=== PATIENT | female | born 1975 | race Caucasian/White ===

== ENCOUNTER 2018-09-05 07:28 | Observation (INO) | payer MEDICAID ==
[2018-09-05] MEDS ORDERED: ceFAZolin 2 GM/DEXTROSE 100 ML IV ONE (08:22)
[2018-09-05] MEDS ORDERED: LIDOCAINE 1% 2 ML INJ ID PRN (08:23)
[2018-09-05] MEDS ORDERED: LR 1,000 ML IV ONE (08:23)
[2018-09-05] MEDS ORDERED: BUPIVACAINE 0.5% 30 ML SDV ONE (10:38)
--- NOTE | 2018-09-05 11:42 | PDANEPAE ---
ANE History of Present Illness Melanoma L leg here for excision ANE Past Medical History - Cardiovascular History Hx Hypertension: No Hx Arrhythmias: No Hx Chest Pain: No - Pulmonary History Hx COPD: No Hx Asthma/Reactive Airway Disease: No Hx Recent Upper Respiratory Infection: No Hx Oxygen in Use at Home: No Hx Sleep Apnea: No - Cancer History Hx Cancer: Yes Cancer History Comment: melanoma ANE Review of Systems Review of Systems: - Exercise capacity Exercise capacity: >=4 METS ANE Patient History - Allergies Allergies/Adverse Reactions: No Known Allergies Allergy (Unverified 08/30/18 11:49) - Home Medications Home Medications: NK [No Known Home Meds] 09/05/18 [Last Taken Unknown] - NPO status NPO Status: no food or drink >8 hours NPO Since - Liquids (Date): 09/04/18 NPO Since - Liquids (Time): 20:00 NPO Since - Solids (Date): 09/04/18 NPO Since - Solids (Time): 18:00 - Anes Hx Anes Hx: no prior problems - Smoking Hx Smoking Status: Never smoked - Alcohol Use Alcohol Use: None - Family Anes Hx Family Anes Hx: none ANE Labs/Vital Signs - Vital Signs Blood Pressure: 128/89 Heart Rate: 61 Respiratory Rate: 20 O2 Sat (%): 96 Height: 157.48 cm Weight: 82.1 kg ANE Physical Exam - Airway Neck exam: FROM Mallampati Score: Class 2 Mouth exam: normal dental/mouth exam - Pulmonary Pulmonary: no respiratory distress, clear to auscultation - Cardiovascular Cardiovascular: regular rate and rhythym, no murmur, rub, or gallop - ASA Status ASA Status: II ANE Anesthesia Plan Anesthesia Plan: GA w LMA
[2018-09-05] MEDS ORDERED: MIDAZOLAM 2 MG/2 ML VIAL IVP ONE (11:43)
--- NOTE | 2018-09-05 12:22 | PDHPUP ---
History & Physical Update H&P update statement: This history and physical update is based on an assessment of the patient which was completed after admission or registration (within 24 hours), but prior to the surgery/procedure. H&P update: H&P reviewed & patient examined, no change in patient's condition since H&P completed
[2018-09-05] MEDS ORDERED: LIDOCAINE 2% 100 MG/5 ML SYR ONE (12:38)
[2018-09-05] MEDS ORDERED: fentaNYL 100 MCG/2 ML INJ ONE ×4 (12:38→16:07)
[2018-09-05] MEDS ORDERED: PROPOFOL 200 MG/20 ML VIAL ONE (12:38)
--- NOTE | 2018-09-05 14:04 | POSTOPPROG ---
Post Op Note Date of Operation: 09/05/18 Surgeon: Faby Acuna Anesthesiologist: gayla Anesthesia: GET(General Endotracheal) Pre-op Diagnosis: malignant melanoma lle Post-op Diagnosis: same Indication: 43 yo with melanoma Procedure: wle melanoma 8x4.5 and sln Findings: no unusual Inf/Abcess present in the surg proc area at time of surgery?: No EBL: Minimal Specimen(s): short superior long posterior and lymph nodes
[2018-09-05] MEDS ORDERED: NALOXONE HCL 0.4 MG/ML INJ IVP PRN (14:13)
[2018-09-05] MEDS ORDERED: PROMETHAZINE HCL 25 MG/ML INJ IVP PRN (14:13)
[2018-09-05] MEDS ORDERED: HYDROCODONE/APAP 5/325 TAB PO PRN (14:13)
[2018-09-05] MEDS ORDERED: oxyCODONE IR 5 MG TAB PO PRN (14:13)
[2018-09-05] MEDS ORDERED: ACETAMINOPHEN 500 MG TAB PO PRN (14:13)
[2018-09-05] MEDS ORDERED: ONDANSETRON 4 MG/2 ML VIAL IVP PRN ×2 (14:13→17:21)
--- NOTE | 2018-09-05 14:14 | POSTANESTH ---
Post Anesthetic Evaluation Cardiovascular Status: Normal, Stable, Similar to Pre-Op Cond Respiratory Status: Normal, Stable, Similar to Pre-op Cond. Level of Consciousness/Mental Status: Can Participate in Eval, Alert and Oriented Pain Control: Adequate, Prn Tx Ordered Nausea/Vomiting Control: Adequate, Prn Tx Ordered Complications Possibly Related to Anesthesia: None Noted
[2018-09-05] MEDS: fentaNYL 100 MCG/2 ML INJ IVP PRN ×3 (14:28→16:09)
[2018-09-05] MEDS ORDERED: HYDROmorphONE/DILAUDID 2 MG/ML INJ ONE (14:32)
[2018-09-05] MEDS: HYDROmorphONE/DILAUDID 2 MG/ML INJ IVP PRN ×3 (14:34→15:17)
[2018-09-05] MEDS ORDERED: DIAZEPAM 5 MG/ML 1 ML SYR ONE ×2 (15:02→16:08)
[2018-09-05] MEDS: DIAZEPAM 5 MG/ML 1 ML SYR IVP PRN ×2 (15:03→16:30)
[2018-09-05] MEDS ORDERED: HYDROCODONE/APAP 5/325 TAB ONE (15:21)
[2018-09-05] MEDS ORDERED: OXYCODONE/APAP 5/325 TAB PO PRN (17:20)
[2018-09-05] MEDS ORDERED: ONDANSETRON DISINTEGRATING 4 MG TAB PO PRN (17:21)
[2018-09-05] MEDS ORDERED: DIAZEPAM 2 MG TAB PO PRN (17:21)
[2018-09-05] MEDS: KETOROLAC 15 MG/1 ML SDV IVP SCH ×2 (19:15→23:27)
[2018-09-06] MEDS: KETOROLAC 15 MG/1 ML SDV IVP SCH (05:12)
[2018-09-06 07:51] VITALS: BP 108/63
[2018-09-06] MEDS ORDERED: PNEUMOCOCCAL 0.5ML VACCINE VIAL (PNEUMOVAX 23) IM ONE (09:22)
--- NOTE | 2018-09-06 09:50 | SOAPPROG ---
SOAP Progress Note Assessment/Plan: Assessment/Plan: 43yo F POD#1 s/p WLE of LLE melanoma with SLN bx. Wound closure with Dermaclose device Path pending Pain improved this am, controlled with PO pain meds Ambulating with walker Tolerating regular diet Change outer dressing twice weekly - ABD and tape [place] cast-protector when showering Dispo: DC home today with close follow-up outpatient for wound care. Seen with Dr. Acuna. Distributor Sales Manager present S: pain well controlled this am O: sitting upright in chair, NAD No increased WOB No peripheral edema Dressing intact. Dermaclose intact. Sutures intact. No surrounding erythema. Objective: Vital Signs Temp Pulse Resp BP Pulse Ox 36.6 C 60 16 108/63 97 09/06/18 07:50 09/06/18 07:50 09/06/18 07:50 09/06/18 07:50 09/06/18 07:50 09/05/18 09/06/18 09/07/18 05:59 05:59 05:59 Intake Total 2150 Output Total 610 Balance 1540 ICD10 Worksheet Patient Problems: Problems Problem Status Onset Melanoma Acute - ICD10 Problem Qualifiers (1) Melanoma
--- NOTE | 2018-09-06 10:06 | ASDISCHSUM ---
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 Comorbidities - select Answers: Other Notes: Melanoma; all that apply # of Emergency department Answers: 0 visits in the last 6 months Score: 1 Date Signed: 09/06/2018 10:05 AM Electronically Signed By:Bri Schumacher Intervention Information
--- NOTE | 2018-09-22 15:15 | GOP ---
DATE OF OPERATION: 09/05/2018 SURGEON: Faby Acuna MD ANESTHESIA: General. ANESTHESIOLOGIST: Reuben Cross MD. PREOPERATIVE DIAGNOSIS: Malignant melanoma, left lower extremity. POSTOPERATIVE DIAGNOSIS: Malignant melanoma, left lower extremity. PROCEDURE PERFORMED: Wide local excision, malignant melanoma, sentinel lymph node biopsy, and insertion of tissue detailer school photographs into left lower leg subcutaneous tissue and fascia. FINDINGS: Wide local excision 8 x 4.5 cm. Dermaclose Product code 159667-Q Lot [id number] exp 03/2021 SPECIMENS: Wide local excision, short superior, long lateral, and lymph nodes. ESTIMATED BLOOD LOSS: Minimal. INDICATIONS: The patient is a 43-year-old with malignant melanoma to her left lower extremity, Breslow depth looked greater than 0.7 and sentinel lymph node biopsy was indicated. We had discussed preoperatively that she would not have enough tissue to close the skin and a DermaClose device was applied to facilitate this. DESCRIPTION OF PROCEDURE: Patient was brought into the operating room, placed supine on the table, and general anesthesia was administered. Her left lower leg and groin were prepped and draped in the usual sterile fashion. I marked 2 cm around the area of the malignant melanoma and then lengthened the incision to create an ellipse. I dissected down to the level of the fascia. I marked short superior, long lateral. This was submitted to Pathology for permanent. Hemostasis achieved in the area. The wound measures approximately 8 x 4.5 cm. I then created subcutaneous flaps about 2 cm in length on the left lower extremity to the level of the fascia. I then applied the DermaClose device, first protecting the skin with Ioban. I placed Adaptic Touch at the base of the wound. I then placed the DermaClose device and tightened it. ABD and Brandon were applied. I made an incision in her groin and dissected down through the subcutaneous tissues. I identified the sentinel lymph nodes very medial. The uptake was quiet and there was no uptake once I removed the sentinel lymph node. Hemostasis achieved. Wound closed with 3-0 Vicryl, followed by Mastisol, Steri- Strips, and a sterile dressing were applied. She was awakened in the operating room, extubated, transferred to PACU in stable condition. /[id number]/MODL MTDD
== END 2018-09-06 11:23 | disposition home or self-care (01) ==
LOC: FSGY 07:28 → F3E 17:20 → F1N 18:52
PROVIDERS: ADMIT Surgery; ATTEND Surgery
DX: C43.72 Malignant melanoma of left lower limb, including hip (principal); Z23 Encounter for immunization
CPT/HCPCS: 11606; 38500; 78195; 90471; 97116; 97161; 97165; A9520; G0008; G0009; J0690; J1170; J1885; J2001; J2250; J2704; J3010; J3360

== ENCOUNTER 2018-09-23 07:04 | Observation (INO) | payer MEDICAID ==
[2018-09-23] MEDS ORDERED: BUPIVACAINE 0.5% 30 ML SDV ONE ×2 (07:14→08:49)
[2018-09-23] MEDS ORDERED: ceFAZolin 2 GM/DEXTROSE 100 ML IV ONE (07:19)
[2018-09-23] MEDS ORDERED: LR 1,000 ML IV ONE (08:15)
--- NOTE | 2018-09-23 08:30 | PDANEPAE ---
ANE History of Present Illness Left lower extrem wound, here for I&D, wound closure ANE Past Medical History - Cardiovascular History Hx Hypertension: No Hx Arrhythmias: No Hx Chest Pain: No Hx Coronary Artery / Peripheral Vascular Disease: No Hx CHF / Valvular Disease: No Hx Palpitations: No - Pulmonary History Hx COPD: No Hx Asthma/Reactive Airway Disease: No Hx Recent Upper Respiratory Infection: No Hx Oxygen in Use at Home: No Hx Sleep Apnea: No Sleep Apnea Screening Result - Last Documented: Negative - Neurologic History Hx Cerebrovascular Accident: No Hx Seizures: No Hx Dementia: No - Endocrine History Hx Diabetes: No - Renal History Hx Renal Disorders: Yes Renal History Comment: 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 left nephrectomy ANE Review of Systems Review of Systems: - Exercise capacity METS (RN): 4 METS ANE Patient History - Allergies Allergies/Adverse Reactions: No Known Allergies Allergy (Verified 09/20/18 16:06) - Home Medications Home Medications: NK [No Known Home Meds] 09/20/18 [Last Taken Unknown] - NPO status NPO Since - Liquids (Date): 09/22/18 NPO Since - Liquids (Time): 20:00 NPO Since - Solids (Date): 09/22/18 NPO Since - Solids (Time): 17:30 - Smoking Hx Smoking Status: Never smoked - Family Anes Hx Family Hx Anesthesia Complications: none ANE Labs/Vital Signs - Vital Signs Blood Pressure: 112/66 Heart Rate: 61 Respiratory Rate: 16 O2 Sat (%): 96 Height: 160.02 cm Weight: 82.1 kg ANE Physical Exam - Airway Neck exam: FROM Mallampati Score: Class 2 Mouth exam: poor dentition - Pulmonary Pulmonary: no respiratory distress - Cardiovascular Cardiovascular: regular rate and rhythym - ASA Status ASA Status: II ANE Anesthesia Plan Anesthesia Plan: GA w LMA (Post-op block if nec) Total IV Anesthesia: No
[2018-09-23] MEDS ORDERED: MIDAZOLAM 2 MG/2 ML VIAL IVP ONE (08:31)
[2018-09-23] MEDS ORDERED: PROPOFOL 200 MG/20 ML VIAL ONE (09:12)
[2018-09-23] MEDS ORDERED: fentaNYL 100 MCG/2 ML INJ ONE ×2 (09:12→10:09)
[2018-09-23] MEDS ORDERED: LIDOCAINE 2% 5 ML SDV ONE (09:12)
[2018-09-23] MEDS ORDERED: ONDANSETRON 4 MG/2 ML VIAL ONE (09:12)
[2018-09-23] MEDS ORDERED: DEXAMETHASONE 4 MG/ML VIAL ONE (09:12)
--- NOTE | 2018-09-23 09:52 | POSTOPPROG ---
Post Op Note Date of Operation: 09/23/18 Surgeon: Faby Acuna Anesthesiologist: denis Anesthesia: GET(General Endotracheal) Pre-op Diagnosis: malignant melanoma LLE Post-op Diagnosis: Same Indication: 43 yo s/p excision of malignant melanoma with wound and dermaclose device Procedure: closure of wound Inf/Abcess present in the surg proc area at time of surgery?: No
[2018-09-23] MEDS: fentaNYL 100 MCG/2 ML INJ IVP PRN ×3 (10:11→11:18)
[2018-09-23] MEDS ORDERED: NALOXONE HCL 0.4 MG/ML INJ IVP PRN (10:16)
[2018-09-23] MEDS ORDERED: MEPERIDINE 25 MG/0.5 ML AMP IVP PRN (10:16)
[2018-09-23] MEDS ORDERED: ONDANSETRON 4 MG/2 ML VIAL IVP PRN ×2 (10:16→11:48)
[2018-09-23] MEDS ORDERED: ACETAMINOPHEN 500 MG TAB PO PRN (10:16)
[2018-09-23] MEDS ORDERED: PROMETHAZINE HCL 25 MG/ML INJ IVP PRN ×2 (10:16→11:48)
[2018-09-23] MEDS ORDERED: oxyCODONE IR 5 MG TAB PO PRN (10:16)
--- NOTE | 2018-09-23 10:19 | POSTANESTH ---
Post Anesthetic Evaluation Cardiovascular Status: Normal, Stable Respiratory Status: Normal, Stable Level of Consciousness/Mental Status: Can Participate in Eval, Mildly Sleepy, Arousable Pain Control: Adequate, Prn Tx Ordered Nausea/Vomiting Control: Adequate, Prn Tx Ordered Complications Possibly Related to Anesthesia: None Noted (In pain, will consider sciatic block if still uncontrolled pain in 30 min)
[2018-09-23] MEDS ORDERED: HYDROmorphONE/DILAUDID 2 MG/ML INJ ONE ×2 (10:20→12:01)
[2018-09-23] MEDS: HYDROmorphONE/DILAUDID 2 MG/ML INJ IVP PRN ×8 (10:23→12:21)
--- NOTE | 2018-09-23 10:40 | GOP ---
DATE OF OPERATION: 09/23/2018 SURGEON: Faby Acuna MD ANESTHESIA: General. ANESTHESIOLOGIST: Dr. Saskia Ogden PREOPERATIVE DIAGNOSIS: Left lower extremity malignant melanoma with open wound. POSTOPERATIVE DIAGNOSIS: Left lower extremity malignant melanoma with open wound. PROCEDURE PERFORMED: Removal of DermaClose device and primary closure of wound. FINDINGS: The wound measures in entirety 8 x 1.5 cm. The largest opening in the central portion was 3 x 1.5 x 0.4 cm. INDICATIONS: The patient is a 43-year-old woman who had a malignant melanoma removed from her left s hin and sentinel lymph node biopsy. Due to the large amount of tissue defect, a DermaClose device an d flaps were performed. It has been gradually closing. DESCRIPTION OF PROCEDURE: Patient was brought into the operating room, placed supine on the table, a nd general anesthesia was administered. Her leg was prepped with Betadine and draped in the usual st erile fashion. I used 2-0 nylon to close the wound. As I got to the central portion, I then removed the mc and the clips from the DermaClose device. I passed the DermaClose device off the field. I then was able to close the central portion of the wound with 2-0 nylon. An Allevyn dressing even was placed, 20 cc of Marcaine was injected. She was awakened in the operating room, extubated, dalton sferred to PACU in stable condition. /[id number]/MODL
[2018-09-23] MEDS ORDERED: oxyCODONE IR 5 MG TAB ONE (10:44)
[2018-09-23] MEDS ORDERED: traMADol 50 MG TAB PO PRN (11:48)
[2018-09-23] MEDS ORDERED: HYDROCODONE/APAP 5/325 TAB PO PRN (11:48)
[2018-09-23] MEDS ORDERED: ACETAMINOPHEN 325 MG TAB PO PRN (11:48)
[2018-09-23] MEDS ORDERED: IBUPROFEN 600 MG TAB PO PRN (11:49)
[2018-09-23] MEDS ORDERED: ACETAMINOPHEN 500 MG TAB ONE (12:24)
[2018-09-23] MEDS ORDERED: ROPIVACAINE 0.2% 1,100 MG in PUMP SET 1 EA NB SCH (12:30)
--- NOTE | 2018-09-23 13:23 | SOAPPROG ---
SOAP Progress Note Assessment/Plan: Assessment: uncontrolled post-op pain Plan: 09/23/18 13:19 Attempted PACU popliteal catheter, but no equipment. Did SS with 20ml 0.5% Rop under US guidance w/o complication Objective: Vital Signs Temp Pulse Resp BP Pulse Ox 36.4 C 61 22 H 130/72 H 98 09/23/18 13:00 09/23/18 08:31 09/23/18 13:01 09/23/18 13:01 09/23/18 13:01 09/22/18 09/23/18 09/24/18 05:59 05:59 05:59 Intake Total 2120 Output Total 0 Balance 2120 Called to PACU for pain control, Armand going to admit. PT positioned onto R side , let cleaned and prepped with chp and sterile towels. US used to ID popliteal n and several attempts to locate the correct equipment for a catheter were made. Attempted pop catheter w/o success due to equipment not available. DID ss 0.5% Rop under US guidance. No complications - Time Spent With Patient Time Spent With Patient: 45 min - Pending Discharge Pending Discharge Within 48 Hours: Yes Pending Discharge Date: 09/25/18 Pending Discharge Time: 11:00 ICD10 Worksheet Patient Problems: Problems Problem Status Onset Melanoma Acute
--- NOTE | 2018-09-24 08:51 | SOAPPROG ---
SOAP Progress Note Assessment/Plan: Assessment: POD # 1 s/p closure of wound on LLE due to wle malignant melanoma path negative admitted due to pain control Much improved this am. Can DC home S: Pain controlled O: Lying in bed, sleeping but easily arousable Dressing dry Plan: 09/24/18 08:50 Objective: Vital Signs Temp Pulse Resp BP Pulse Ox 36.6 C 78 16 98/58 L 91 L 09/24/18 05:35 09/24/18 05:35 09/24/18 05:35 09/24/18 05:35 09/24/18 05:35 09/23/18 09/24/18 09/25/18 05:59 05:59 05:59 Intake Total 2620 Output Total 0 Balance 2620 ICD10 Worksheet Patient Problems: Problems Problem Status Onset Melanoma Acute
[2018-09-24 09:07] VITALS: BP 104/58
--- NOTE | 2018-09-24 14:04 | ASMTCMCOM ---
CM Note CM Note Notes: Pt in for GERD, porphyria exacerbation, here in ED 09/18/18 for similar symptoms. No therapies ordered. Chart indicates pt resides at [place], [place] unknown Anticipate pt will d/c when medically stable. CM available for changes/needs. Date Signed: 09/24/2018 02:04 PM Electronically Signed By:NIKKI Martin
--- NOTE | 2018-09-24 14:13 | ASMTCMCOM ---
CM Note CM Note Notes: disregard last cm note, entered in error on wrong pt Date Signed: 09/24/2018 02:13 PM Electronically Signed By:NIKKI Martin
== END 2018-09-24 11:59 | disposition home or self-care (01) ==
LOC: FSGY 07:04 → F3E 11:48 → F1N 14:29
PROVIDERS: ADMIT Surgery; ATTEND Surgery
PROC: 0HQLXZZ Repair Left Lower Leg Skin, External Approach (ICD-10-PCS; principal; 2018-09-23 09:15)
DX: G89.18 Other acute postprocedural pain (principal); Z48.1 Encounter for planned postprocedural wound closure; C43.72 Malignant melanoma of left lower limb, including hip; Z90.5 Acquired absence of kidney
CPT/HCPCS: 13160; G0378; J0690; J1100; J1170; J2250; J2405; J2704; J2795; J3010